=== PATIENT | female | born 1940 | race Caucasian/White ===

== ENCOUNTER 2020-05-09 14:42 | Emergency (ER) | payer OTHER ==
[2020-05-09 16:16] LABS: BASOPHIL 0.8 % (0-2); EOSINOPHIL 1.6 % (0-7); HCT 39.1 % (37.0-47.0); HGB 13.1 g/dl (12.5-16.0); LYMPHOCYTE 12.5 % (15-48); MCHC 33.5 g/dL (32.0-36.0); MCV 95.6 fL (78.0-100.0); MONOCYTE 6.8 % (0-12); MPV 8.8 fL (6.0-9.5); NEUTROPHIL 78.1 % (41-80); NRBC 0; PLT 294 K/uL (150-400); RBC 4.09 M/uL (4.20-5.40); RDW 11.9 % (11.5-14.0)
[2020-05-09 16:28] LABS: CREATININE 0.89 mg/dL (0.51-0.95)
[2020-05-09 16:35] LABS: BILIRUBIN NEGATIVE (NEGATIVE); BLOOD NEGATIVE Ery/uL (NEGATIVE); CLARITY CLEAR (CLEAR); COLOR YELLOW (YELLOW); GLUCOSE (U) NORMAL (NORMAL); LEUKOCYTES TRACE Leu/uL (NEGATIVE); NITRITE NEGATIVE (NEGATIVE); PROTEIN NEGATIVE (NEGATIVE); SPECIFIC GRAVITY >=1.030 (1.001-1.030); UROBILINOGEN 0.2 mg/dL (0.2-1.0); pH 5.5 (5.0-9.0)
[2020-05-09 16:47] LABS: URINARY RBC RARE
== END 2020-05-09 19:33 | disposition home or self-care (01) ==
LOC: FER 14:42
PROVIDERS: Nurse Practitioner Family
DX: M79.661 Pain in right lower leg (principal); M79.651 Pain in right thigh; R06.02 Shortness of breath; I10 Essential (primary) hypertension
CPT/HCPCS: 36415; 71275; 80048; 81001; 85025; 85379; 93005; 93971; J7030; Q9967

== ENCOUNTER 2021-01-05 15:29 | Emergency (ER) | payer OTHER ==
[2021-01-05 16:06] LABS: BASOPHIL 0.5 % (0-2); EOSINOPHIL 3.2 % (0-7); HCT 38.7 % (37.0-47.0); HGB 12.6 g/dl (12.5-16.0); LYMPHOCYTE 9.7 % (15-48); MCH 31.5 pg (25.0-31.0); MCHC 32.6 g/dL (32.0-36.0); MCV 96.8 fL (78.0-100.0); MONOCYTE 6.2 % (0-12); MPV 9.2 fL (6.0-9.5); NRBC 0; PLT 287 K/uL (150-400); RDW 11.9 % (11.5-14.0); WBC 7.4 K/uL (4.0-10.5)
[2021-01-05 16:17] LABS: ALBUMIN 3.1 g/dL (3.4-5.0); BILIRUBIN - TOTAL 0.3 mg/dL (0.2-1.0); BUN/CREAT RATIO (CALC) 21.4 RATIO; CREATININE 1.73 mg/dL (0.51-0.95); GLOBULIN (CALCULATION) 3.1 g/dL; POTASSIUM 4.2 mmol/L (3.5-5.1); TOTAL PROTEIN 6.2 g/dL (6.4-8.2)
[2021-01-05 16:28] LABS: LACTIC ACID 1.4 mmol/L (0.4-1.9)
[2021-01-05 17:39] LABS: BILIRUBIN NEGATIVE (NEGATIVE); BLOOD NEGATIVE Ery/uL (NEGATIVE); CLARITY CLEAR (CLEAR); COLOR YELLOW (YELLOW); GLUCOSE (U) NORMAL (NORMAL); LEUKOCYTES TRACE Leu/uL (NEGATIVE); NITRITE NEGATIVE (NEGATIVE); PROTEIN NEGATIVE (NEGATIVE); SPECIFIC GRAVITY >=1.030 (1.001-1.030); UROBILINOGEN 0.2 mg/dL (0.2-1.0); pH 5.5 (5.0-9.0)
[2021-01-05 17:55] LABS: BACTERIA 2+; RENAL EPITHELIAL CELLS RARE; SQUAMOUS EPITHELIAL CELLS RARE
[2021-01-05 17:56] LABS: CALCIUM OXALATE CRYSTALS TRACE
[2021-01-05 18:12] LABS: CORONAVIRUS 2019 SARS-COV-2 NEGATIVE (NEGATIVE); INFLUENZA A NAA NEGATIVE (NEGATIVE)
[2021-01-05] MEDS ORDERED: FLEXERIL5 MG PO ×2 (20:13→20:31)
[2021-01-05] MEDS ORDERED: MACROBID100 MG PO ×2 (20:13→20:31)
[2021-01-07] MEDS ORDERED: LOPRESSOR25 MG PO (01:45)
[2021-01-07] MEDS ORDERED: ALTACE5 MG PO (01:46)
[2021-01-07] MEDS ORDERED: ASPIRIN EC81 MG PO (01:46)
== END 2021-01-05 21:17 | disposition home or self-care (01) ==
LOC: FER 15:29
PROVIDERS: Internal Medicine
DX: E83.52 Hypercalcemia (principal); N39.0 Urinary tract infection, site not specified; R79.89 Other specified abnormal findings of blood chemistry; N17.9 Acute kidney failure, unspecified; I10 Essential (primary) hypertension; Z88.1 Allergy status to other antibiotic agents; Z20.822 Contact with and (suspected) exposure to COVID-19
CPT/HCPCS: 36415; 70450; 71250; 80053; 81001; 83605; 83690; 83880; 84145; 85025; 87040; 87088; J0696; J7040; U0002

== ENCOUNTER 2021-01-06 16:53 | Inpatient (IN) | payer OTHER | END 2021-01-12 18:26 | disposition home health service (06) | DRG 682 | LOC: FER 16:53 → FICU 21:46 → FTCU 01-09 20:44 | PROVIDERS: ADMIT Internal Medicine | DX: N17.0 Acute kidney failure with tubular necrosis (principal); G93.41 Metabolic encephalopathy; N30.00 Acute cystitis without hematuria; E83.52 Hypercalcemia; I95.9 Hypotension, unspecified; I12.9 Hypertensive chronic kidney disease with stage 1 through stage 4 chronic kidney disease, or unspecified chronic kidney disease; N18.2 Chronic kidney disease, stage 2 (mild); Z20.822 Contact with and (suspected) exposure to COVID-19; K21.9 Gastro-esophageal reflux disease without esophagitis; E86.9 Volume depletion, unspecified; Z98.890 Other specified postprocedural states; Z98.41 Cataract extraction status, right eye; Z98.42 Cataract extraction status, left eye; Z79.82 Long term (current) use of aspirin; Z79.899 Other long term (current) drug therapy ==